=== PATIENT | female | born 1990 | race Caucasian/White ===

== ENCOUNTER 2019-05-11 13:50 | Emergency (ER) | payer OTHER ==
[~2019-05-11] VITALS: Ht 165.1 cm; Wt 72.0 kg
[2019-05-11 13:56] VITALS: Ht 165.1 cm; Wt 72.0 kg
[2019-05-11 16:36] VITALS: BP 126/70; PULSE 73; RESP 18
== END 2019-05-11 16:36 | disposition home or self-care (01) ==
LOC: FTE 13:50
DX: O26.891 Other specified pregnancy related conditions, first trimester (principal); R10.2 Pelvic and perineal pain; Z3A.01 Less than 8 weeks gestation of pregnancy
CPT/HCPCS: 76801; 76817; 81003; 81025; 84702; Z7502